=== PATIENT | female | born 1975 | race Caucasian/White ===

== ENCOUNTER 2022-05-14 09:03 | Emergency (ER) | payer BC, SELFPAY ==
--- NOTE | ~2022-05-14 | CT_ITS ---
EXAMINATION: CT brain wo con DATE: 05/14/2022 09:55 INDICATION: Dizziness. Hypertension. TECHNIQUE: Computed tomography (CT) of the head was performed without intravenous contrast. The mA wa s adjusted according to patient size. Iterative reconstruction technique was employed. The dose-lengt h product was 605.33 mGy-cm. COMPARISON: None FINDINGS: There is no intracranial hemorrhage, acute infarction, or abnormal intracranial mass lesion . The ventricles are normal in size. The orbits are normal. There is mild mucosal thickening in the p aranasal sinuses. The mastoid air cells are normal. IMPRESSION: 1. Normal brain. Reviewed, dictated and finalized at location A. IMPRESSION: 1. Normal brain.
--- NOTE | 2022-05-14 09:08 | ECG_ITS ---
Measurements Intervals Cook Rate: 73 P: 21 MT: 156 QRS: 8 QRSD: 75 T: 9 QT: 355 QTc: 392 Interpretive Statements SINUS RHYTHM BORDERLINE R WAVE PROGRESSION, ANTERIOR LEADS BORDERLINE ECG NO PREVIOUS ECG AVAILABLE FOR COMPARISON Electronically Signed On 05-14-2022 9:28:32 CDT by Charles Bae D.O.
[2022-05-14 09:09] VITALS: BP 191/160; PULSE 85; RESP 16; TEMP 36.4; O2SAT 99
[2022-05-14 09:25] VITALS: PULSE 81
[2022-05-14 09:28] LABS: Basophils Absolute Auto 0.1 K/mm3 (0.0-0.1); Basophils Percent Auto 0.7 % (0.2-1.2); Eosinophils Absolute Auto 0.2 K/mm3 (0-0.3); Eosinophils Percent Auto 1.4 % (0-4.4); Hematocrit 48.7 % (37.0-47.0); Hemoglobin 15.8 g/dL (12.0-15.0); Immature Granulocyte Absolute 0.07 K/mm3 (0.00-0.031); Immature Granulocyte Percent A 0.6 % (0-0.5); Lymphocytes Absolute Auto 2.56 K/mm3 (0.9-3.2); Mean Corpuscular HGB Conc 32.4 g/dl (32-36); Mean Corpuscular Hemoglobin 30.2 pg (26-34); Mean Corpuscular Volume 93.1 fl (80-100); Mean Platelet Volume 9.3 fl (7.4-10.4); Monocytes Absolute Auto 0.7 K/mm3 (0.1-0.6); Monocytes Percent Auto 6.2 % (2.6-8.5); Neutrophils Absolute Auto 7.6 K/mm3 (1.3-6.7); Neutrophils Percent Auto 68.1 % (45.5-73.1); Platelet Count Result 285 k/mm3 (150-375); Red Blood Count 5.23 M/mm3 (4.2-5.4); Red Cell Distribution Width 14.2 % (11.5-14.5); White Blood Count 11.2 K/mm3 (4.5-10.0)
--- NOTE | 2022-05-14 09:34 | ED.DIZZY ---
HPI - Dizziness General Chief Complaint: Dizziness <KIT Campo Last Filed: 05/14/22 17:30> Stated Complaint: dizziness since waking up yesterday <KIT Campo Last Filed: 05/14/22 17:30> Time Seen by Provider: 05/14/22 09:18 <KIT Campo Last Filed: 05/14/22 17:30> History of Present Illness HPI Narrative: Patient is a 47-year-old female with a history of hypertension here for evaluation of dizziness over the past day. Patient states that the dizziness is described as a room spinning sensation. The dizziness is intermittent in nature, patient denies any obvious triggers but does note that it is most severe when she is lying down flat at nighttime when she changes positions. She notes that she has a history of chronic headaches, no worse than usual. Additionally reporting some left ear fullness and pain. No fevers, chills, visual changes, syncope, head injury, congestion, cough, chest pain. Patient is supposed to be on antihypertensives but states she has not taken these in years . <KIT Campo Last Filed: 05/14/22 17:30> Related Data Allergies/Adverse Reactions: Allergies Allergy/AdvReac Type Severity Reaction Status Date / Time lisinopril Allergy Cough Verified 05/14/22 09:04 <KIT Campo Last Filed: 05/14/22 17:30> Review of Systems Review of Systems: Gen.: Denies fevers or chills Eyes: Denies eye pain or visual change ENT: Reports ear pain. Denies congestion Respiratory: Denies shortness of breath or cough CV: Denies chest pain or palpitations GI: Denies abdominal pain nausea, emesis or diarrhea denies burning, urgency, frequency or hematuria Musculoskeletal: Denies back pain or muscle pain Neuro: Reports dizziness. Denies numbness, tingling, weakness or focal weakness Skin: Denies rash Except as documented, all other systems reviewed and negative <KIT Campo Last Filed: 05/14/22 17:30> Exam Narrative: APPEARANCE: Well appearing, no pain in distress, well-nourished. Head: Normocephalic and atraumatic. EYES: Fatigable, horizontal nystagmus. EOMs reproduces dizziness. PERRLA. conjunctivae clear NOSE: No nasal drainage EARS: Left TM is cloudy and bulging. External ear normal in appearance THROAT: Oropharynx is clear. Mucous membranes are moist. NECK: Supple. No adenopathy, no masses. RESPIRATORY: Airway patent, respirations nonlabored. Clear to auscultation bilaterally, no rales, rhonchi, wheezing. CARDIOVASCULAR: Regular rate and rhythm without murmurs, rubs, or gallops. ABDOMINAL: Normoactive bowel sounds. Soft, nontender, nondistended. No rebound tenderness or guarding. MUSCULOSKELETAL: Extremities are warm and well-perfused. Moves all extremities well. No edema. NEURO: cn ii-xii intact. 5/5 strength in bilateral upper and lower extremities, FTN . Normal speech. SKIN: Skin is warm and dry. No rashes. PSYCHIATRIC: Normal affect/mood. <Francesca Driver PA-C - Last Filed: 05/14/22 17:30> Course [employer]/PA Physician Supervision For this patient encounter, I reviewed the [employer] or PA documentation, treatment plan, and medical decision making <Pieter Jeff MD - Last Filed: 05/15/22 07:13> Vital Signs Vital signs: Vital Signs Temperature 97.5 F L 05/14/22 09:09 Pulse Rate 85 05/14/22 09:09 Respiratory Rate 16 05/14/22 09:09 Blood Pressure 191/160 H 05/14/22 09:09 Pulse Oximetry 99 05/14/22 09:09 Oxygen Delivery Room Air 05/14/22 09:09 Temperature 97.5 F L 05/14/22 09:09 Pulse Rate 63 05/14/22 11:06 Respiratory Rate 18 05/14/22 11:06 Blood Pressure 166/110 H 05/14/22 11:06 Pulse Oximetry 99 05/14/22 11:06 Oxygen Delivery Room Air 05/14/22 09:09 <Francesca Driver PA-C - Last Filed: 05/14/22 17:30> Vital Signs Temperature 97.5 F L 05/14/22 09:09 Pulse Rate 85 05/14/22 09:09 Respiratory Ra
[2022-05-14 09:38] LABS: Alanine Aminotransferase 17 U/L (6-35); Albumin Level 4.3 g/dL (3.5-5.1); Alkaline Phosphatase 96 U/L (38-126); Anion Gap 8 mmol/L (8-16); Aspartate Amino Transferase 19 U/L (14-36); Bilirubin,Total 0.5 mg/dL (0.2-1.3); Blood Urea Nitrogen 12 mg/dL (7-17); Calcium 9.3 mg/dL (8.4-10.2); Carbon Dioxide 28 mmol/L (22-30); Chloride 103 mmol/L (98-107); Estimated CRCL calculation 84 ml/min; Estimated Glomerular Filt Rate > 60; Glucose 118 mg/dL (65-110); Sodium 139 mmol/L (137-145)
[2022-05-14] MEDS: LOSARTAN POTASSIUM 25 MG TABLET PO (10:02)
[2022-05-14] MEDS: MECLIZINE HCL 25 MG TABLET PO (10:02)
[2022-05-14 11:06] VITALS: BP 166/110; PULSE 63; RESP 18; O2SAT 99
== END 2022-05-14 11:07 | disposition home or self-care (01) ==
PROVIDERS: Emergency Provider Emergency Medicine
DX: H66.92 Otitis media, unspecified, left ear (principal); I10 Essential (primary) hypertension; R94.31 Abnormal electrocardiogram [ECG] [EKG]
CPT/HCPCS: 36415; 70450; 80053; 85025; 93005; 99284; A9270